=== PATIENT | male | born 1985 | race Hispanic/Latino ===

== ENCOUNTER 2017-07-26 20:15 | Emergency (ER) | payer OTHER ==
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
[2017-07-26] MEDS ORDERED: NACL 0.9% 500 ML 500 ML IV ONE (23:01)
[2017-07-26 23:31] LABS: Basophils % (Auto) 0.3 % (0.0-1.8); Eosinophils % (Auto) 1.4 % (0.0-4.3); Hematocrit 48.3 % (35.5-45.6); Hemoglobin 16.3 gm/dl (11.8-15.2); Mean Corpuscular HGB Conc 34 % (32-34); Mean Corpuscular Hemoglobin 30 pg (28-32); Mean Corpuscular Volume 90 fl (84-94); Platelet Count 174 K/mm3 (140-440); Red Blood Count 5.39 M/mm3 (3.65-5.03); Red Cell Distribution Width 13.5 % (13.2-15.2); White Blood Count 7.9 K/mm3 (4.5-11.0)
[2017-07-26 23:41] LABS: INR 0.96 (0.87-1.13)
[2017-07-26 23:42] LABS: Partial Thromboplastin Time 32.8 Sec. (24.2-36.6)
[2017-07-26 23:52] LABS: Albumin/Globulin Ratio 1.1 %; Alkaline Phosphatase 81 units/L (35-129); BUN/Creatinine Ratio 11.66; Blood Urea Nitrogen 7 mg/dL (9-20); Calcium 9.2 mg/dL (8.4-10.2); Carbon Dioxide 20 mmol/L (22-30); Chloride 100.2 mmol/L (98-107); Glucose 87 mg/dL (75-100); Lipase 24 units/L (13-60); Sodium 138 mmol/L (137-145); Total Protein 7.6 g/dL (6.3-8.2)
[2017-07-27 00:04] LABS: Alanine Aminotransferase 24 units/L (7-56); Anion Gap 22 mmol/L; Potassium 4.1 mmol/L (3.6-5.0)
[2017-07-27] MEDS ORDERED: TORADOL IM ONE (00:55)
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
[2017-07-27 01:41] LABS: Bilirubin,Urine NEG (Negative); Blood,Urine LG (Negative); Ketones,Urine 20 mg/dL (Negative); Leukocyte Esterase,Urine NEG (Negative); Mucus,Urine 3+ /HPF; Nitrite,Urine NEG (Negative)
[2017-07-27 01:47] LABS: RBC,Urine > 182.0 /HPF (0.0-6.0)
[2017-07-27] MEDS ORDERED: NACL 0.9% 1000 ML 1,000 ML ONE (02:33)
[2017-07-27 04:18] VITALS: BP 118/76
--- NOTE | 2017-07-27 08:55 | XRay Report ---
AP CHEST :07/26/17 CLINICAL: Chest pain. COMPARISON:05/05/14 FINDINGS: Normal heart and pulmonary vasculature. The lungs are normally expanded and clear. The bones and soft tissues are normal. IMPRESSION: Normal chest.
--- NOTE | 2017-07-27 10:55 | XRay Report ---
FINAL REPORT EXAM: XR SHOULDER 2+V LT HISTORY: left shoulder pain TECHNIQUE: Three views of the left shoulder were obtained. Comparison is made to the study of 07/26/2017. FINDINGS: There is stable widening of the AC joint with minimal subluxation of the distal clavicle relative to the acromion compatible with an AC joint separation. There is no evidence of fracture. The glenohumeral joint appears intact. The soft tissues are unremarkable. IMPRESSION: Stable grade 2 AC joint separation. No evidence of fracture or significant change since yesterday's study.
== END 2017-07-27 04:17 | disposition home or self-care (01) ==
LOC: ED 20:15
DX: S46.912A Strain of unspecified muscle, fascia and tendon at shoulder and upper arm level, left arm, initial encounter (principal); R31.21 Asymptomatic microscopic hematuria; F17.200 Nicotine dependence, unspecified, uncomplicated; V49.59XA Passenger injured in collision with other motor vehicles in traffic accident, initial encounter; Y93.9 Activity, unspecified; Y92.9 Unspecified place or not applicable; Y99.9 Unspecified external cause status
CPT/HCPCS: 36415; 71010; 71100; 72100; 73030; 80053; 81001; 82140; 82805; 83690; 84484; 85025; 85610; 85730; 87086; 93005; 93010; 96372; 99284; G0480; J1885; J7030; 80320